=== PATIENT | female | born 1970 | race Caucasian/White ===

== ENCOUNTER → 2023-12-25 | Emergency (ER) | payer OTHER ==
[~2023-12-25] MED LIST: KETOROLAC 30 MG/ML INJ ONE; MORPHINE 4 MG/ML SYR ONE; NA CHLORIDE 0.9% 1,000 ML ONE; ONDANSETRON 4 MG/2 ML VIAL ONE
[2023-12-25 18:02] LABS: Absolute Lymphocytes (CBC) 2.5 K/uL (0.7-4.9); Lymphocytes % 32.8 % (15.3-44.8); MCV 100.5 fL (80-100); MPV 8.4 fL (7.6-11.3); Platelets 313 thou/uL (152-406); RBC Red Blood Cell Count 4.38 M/uL (3.86-4.86)
[2023-12-25 18:21] LABS: Albumin 4.1 g/dL (3.4-5.0); Bilirubin Total 0.7 mg/dL (0.2-1.0); Potassium 3.6 mEq/L (3.5-5.1); Protein, Total 7.7 g/dL (6.4-8.2)
[2023-12-25 19:07] LABS: Specific Gravity 1.017 (1.005-1.030); Urine Bacteria None Seen /HPF (<20); Urine Bilirubin NEGATIVE (Negative); Urine Blood Negative (Negative); Urine Clarity Clear (Clear); Urine Color Light-Yellow (Yellow); Urine Glucose NEGATIVE (Negative); Urine Protein TRACE (Negative); Urine RBC <5 /HPF (None Seen); Urine Urobilinogen Normal (Normal)
--- NOTE | 2023-12-25 19:39 | RAD REPORT ---
EXAM DESCRIPTION: CT - Abdomen Pelvis W Contrast - 12/25/2023 6:56 pm CLINICAL HISTORY: R flank pain COMPARISON: No comparisons TECHNIQUE: Thin cut axial CT imaging of the abdomen and pelvis was performed following intravenous a dministration of 97 mL Isovue 300. Multiplanar reformats were generated and reviewed. All CT scans are performed using dose optimization technique as appropriate and may include automated exposure control or mA/KV adjustment according to patient size. FINDINGS: No suspicious findings in the lung bases. The liver, spleen, adrenal glands, and pancreas show no suspicious findings. Gallbladder and biliary tree are also without suspicious finding. Symmetric renal function is seen with no hydronephrosis or suspicious renal mass. No dilated bowel loops or bowel wall thickening. No free air, free fluid or inflammatory stranding. N o hernia, mass or bulky lymphadenopathy. The urinary bladder is without significant finding. No suspicious bony findings. IMPRESSION: No acute intra-abdominal process.
--- NOTE | 2023-12-25 19:56 | ER ---
Nurse's Notes [facility] Name: Nancy Mcfarland Age: 53 yrs Sex: Female : 1970 Arrival Date: 12/25/2023 Time: 17:09 Bed 15 Private MD: Diagnosis: Flank Pain Presentation: 12/25 17:27 Chief complaint: Patient states: RIGHT SIDE AND RIGHT FLANK PAIN PAIN X 3 WEEKS. STATES db URINE HAS A DIFFERENT SMELL TO IT. COMPLAINS OF N/V. Coronavirus screen: Client denies travel out of the [place] in the last 14 days. At this time, the client does not indicate any symptoms associated with coronavirus-19. Ebola Screen: Patient negative for fever greater than or equal to 101.5 degrees Fahrenheit, and additional compatible Ebola Virus Disease symptoms Patient denies exposure to infectious person. Patient denies travel to an Ebola-affected area in the 21 days before illness onset. No symptoms or risks identified at this time. Initial Sepsis Screen: Does the patient meet any 2 criteria? No. Patient's initial sepsis screen is negative. Does the patient have a suspected source of infection? No. Patient's initial sepsis screen is negative. Risk Assessment: Do you want to hurt yourself or someone else? Patient reports no desire to harm self or others. Onset of symptoms was December 25, 2023. 17:27 Method Of Arrival: Ambulatory db 17:27 Acuity: MARCO 3 db Triage Assessment: 17:30 General: Appears in no apparent distress. uncomfortable, Behavior is calm, cooperative. db Pain: Complains of pain in back and abdomen. Neuro: Level of Consciousness is awake, alert, obeys commands, Oriented to person, place, time, situation. GI: Abdomen is flat, Reports nausea, vomiting. Historical: - Allergies: 17:30 Hydrocodone-Acetaminophen; db - PMHx: 17:30 Hypothyroidism; db - PSHx: 17:30 PARTIAL HYSTERECTOMY; db - Immunization history:: Adult Immunizations unknown. - Social history:: Smoking status: Patient reports the use of cigarette tobacco products, denies chronic smoking, but will smoke occasionally. Screenin:56 [facility] ED Fall Risk Assessment (Adult) History of falling in the last 3 months, kc6 including since admission No falls in past 3 months (0 pts) Confusion or Disorientation No (0 pts) Intoxicated or Sedated No (0 pts) Impaired Gait No (0 pts) Mobility Assist Device Used No (0 pt) Altered Elimination No (0 pt) Score/Fall Risk Level 0 - 2 = Low Risk. Abuse screen: Denies threats or abuse. Denies injuries from another. Nutritional screening: No deficits noted. Tuberculosis screening: No symptoms or risk factors identified. Assessment: 17:56 General: Appears in no apparent distress. uncomfortable, well groomed, well developed, kc6 Behavior is calm, cooperative, appropriate for age. Pain: Complains of pain in right upper quadrant and right lower quadrant and back. Neuro: Level of Consciousness is awake, alert, obeys commands, Oriented to person, place, time, situation, Appropriate for age. Cardiovascular: Capillary refill < 3 seconds. Respiratory: Airway is patent Trachea midline Respiratory effort is even, unlabored, Respiratory pattern is regular, symmetrical. GI: Pt is actively vomiting bile, Bowel sounds present X 4 quads. Abd is soft X 4 quads Abdomen is tender to palpation in right upper quadrant and right lower quadrant Reports lower abdominal pain, upper abdominal pain, nausea, vomiting, Patient currently denies diarrhea. : No signs and/or symptoms were reported regarding the genitourinary system. EENT: No signs and/or symptoms were reported regarding the EENT system. Derm: No signs and/or symptoms reported regarding the dermatologic system. Skin is intact, is healthy with good turgor, Skin is pink, warm \T\ dry. Musculoskeletal: No signs and/or symptoms reported regarding the musculoskeletal system. Circulation, motion, and sensation intact. Capillary refill < 3 seconds, Range of motion: intact in all extremities. 19:07 Reassessment: Patient appears in no apparent distress at this time. No changes from tm6 previously documented assessment. Patient and/or family updated on plan of care and expected duration. Pain level reassessed. Patient is alert, oriented x 3, equal unlabored respirations, skin warm/dry/pink. 20:15 Reassessment: Patient appears in no apparent distress at this time. No changes from tm6 previously documented assessment. Vital Signs: 17:27 Pulse 71; Resp 18; Temp 98.5; Pulse Ox 100% ; Weight 58.97 kg; Height 5 ft. 5 in. ; db 17:57 BP 140 / 92; kc6 19:04 BP 141 / 74; Pulse 73; Resp 19; Pulse Ox 100% ; Pain 7/10; tm6 20:15 BP 117 / 65; Pulse 74; Resp 19; Temp 98.3(O); Pulse Ox 100% on R/A; Pain 3/10; tm6 17:27 Body Mass Index 21.63 (58.97 kg, 165.1 cm) db 19:04 Pain Scale: Adult tm6 20:15 Pain Scale: Adult tm6 ED Course: 17:15 Patient arrived in ED. ae5 17:19 Jai Rapp MD is Attending Physician. ec2 17:27 Arm band placed on right wrist. db 17:29 Triage completed. db 17:34 Leela Murillo, SANA is Primary Nurse. [facility] 17:56 Radiology exam delayed due to IV insertion attempt and/or patient not having nj appropriate IV at this time. 17:56 Radiology exam delayed due to lab results not completed at this time. (BUN/Creatinine). nj 17:56 Patient has correct armband on for positive identification. Bed in low position. Call kc6 light in reach. Side rails up X 1. Adult w/ patient. Client placed on continuous cardiac and pulse oximetry monitoring. NIBP monitoring applied. 17:56 Inserted saline lock: 20 gauge in left wrist, using aseptic technique. Blood collected. kc6 Patient maintains SpO2 saturation greater than 95% on room air. 18:21 Radiology exam delayed due to lab results not completed at this time. (BUN/Creatinine). nj 18:57 CT Abd/Pelvis - IV Contrast Only In Process Unspecified. EDMS 19:00 Report given to SANA Raphael. [facility] 19:08 Door closed. Noise minimized. Warm blanket given. tm6 20:15 No provider procedures requiring assistance completed. IV discontinued, intact, tm6 bleeding controlled, No redness/swelling at site. Pressure dressing applied. 20:16 Provided Education on: at home pain management. tm6 Administered Medications: 17:56 Drug: NS 0.9% IV 1000 ml IV at 1 bolus Per protocol; 1000 mL bolus Route: IV; Rate: 1 kc6 bolus; Site: left wrist; 17:56 Drug: TORadol - Ketorolac IVP 15 mg IVP once Route: IVP; Site: left wrist; kc 18:30 Follow up: Response: No adverse reaction; Pain is decreased kc6 17:56 Drug: Ondansetron IVP 4 mg IVP once; over 2 minutes Route: IVP; Site: left wrist; kc6 18:30 Follow up: Response: No adverse reaction; Nausea is decreased; Vomiting decreased kc6 17:56 Drug: morphine IVP or IV 4 mg IVP once over 4 mins Route: IVP; Infused Over: 4 mins; kc6 Site: left wrist; 18:30 Follow up: Response: No adverse reaction; Pain is decreased; RASS: Alert and Calm (0) kc6 19:27 Drug: morphine IVP or IV 4 mg IVP once over 4 mins Route: IVP; Infused Over: 4 mins; tm6 Site: left forearm; Medication: 20:16 VIS not applicable for this client. tm6 Outcome: 19:55 Discharge ordered by . ec2 20:16 Discharged to home ambulatory, with family, tm6 20:16 Condition: stable 20:16 Discharge instructions given to patient, family, Instructed on discharge instructions, follow up and referral plans. Demonstrated understanding of instructions, follow-up care, 20:16 Patient left the ED. tm6 Signatures: Dispatcher [employer] EDMS Emory Hutson Kaitlyn, RN RN kc6 Jaymie Wong RN RN Jai Cullen MD MD ec2 Donavon Ford RN RN tm6 Rosy Foster ae5 Corrections: (The following items were deleted from the chart) 17:31 17:27 Pulse 71bpm; Resp 18bpm; Pulse Ox 100%; Temp 98.5F; db db
--- NOTE | 2023-12-25 19:56 | EDPHYS ---
Physician Documentation [facility] Name: Nancy Mcfarland Age: 53 yrs Sex: Female : 1970 Arrival Date: 12/25/2023 Time: 17:09 Bed 15 Private MD: ED Physician Jai Rapp HPI: 12/25 17:32 This 53 yrs old Female presents to ER via Ambulatory with complaints of Flank ec2 Pain, Vomiting, Urinary Problem. 17:32 Patient arrives today for evaluation of right flank pain with associated nausea and ec2 vomiting. Patient reports that she been experiencing 3 weeks of symptoms, states that they were intermittent however now more constant. Patient reports some foul-smelling urine. Patient reports no fevers or chills, does endorse nausea and vomiting. Reports previous history of partial hysterectomy.. Historical: - Allergies: 17:30 Hydrocodone-Acetaminophen; db - PMHx: 17:30 Hypothyroidism; db - PSHx: 17:30 PARTIAL HYSTERECTOMY; db - Immunization history:: Adult Immunizations unknown. - Social history:: Smoking status: Patient reports the use of cigarette tobacco products, denies chronic smoking, but will smoke occasionally. ROS: 17:32 Constitutional: as per hpi ec2 Exam: 17:32 Constitutional: GEN: NAD Head: atraumatic Eyes: EOMI Ears: External ears are ec2 normal. CV: regular rate LUNGS: no respiratory distress ABD: non-distended, soft, nontender, not guarding, not rigid. Right flank with minimal CVA TTP SKIN: no evidence of rashes MSK: no evidence of trauma NEURO: moves all extremities equally Vital Signs: 17:27 Pulse 71; Resp 18; Temp 98.5; Pulse Ox 100% ; Weight 58.97 kg; Height 5 ft. 5 in. ; db 17:57 BP 140 / 92; kc6 19:04 BP 141 / 74; Pulse 73; Resp 19; Pulse Ox 100% ; Pain 7/10; tm6 20:15 BP 117 / 65; Pulse 74; Resp 19; Temp 98.3(O); Pulse Ox 100% on R/A; Pain 3/10; tm6 17:27 Body Mass Index 21.63 (58.97 kg, 165.1 cm) db 19:04 Pain Scale: Adult tm6 20:15 Pain Scale: Adult tm6 MDM: 17:30 Patient medically screened. ec2 17:32 Data reviewed: vital signs. ED course: Patient arrives today for evaluation of right ec2 flank pain. Examination remarkable for well-appearing nontoxic individual is otherwise in no acute distress with reassuring examination. Will obtain lab work, CT imaging and treat the patient's pain. Currently evaluating for process such as urolithiasis, pyelonephritis, UTI.. 18:25 ED course: Metabolic profile reassuring, lipase within normal ranges. . ec2 19:46 ED course: CT abdomen pelvis shows no acute intra-abdominal process. . ec2 19:54 ED course: On reassessment patient with improving symptoms. CT imaging shows no acute ec2 intra-abdominal process. Will discharge home. Return precautions given.. 12/25 17:32 Order name: CBC with Diff; Complete Time: 18:13 ec2 12/25 17:32 Order name: CMP; Complete Time: 18:25 ec2 12/25 17:32 Order name: Lipase; Complete Time: 18:25 ec2 12/25 17:32 Order name: Urinalysis w/ reflexes; Complete Time: 19:17 ec2 12/25 17:32 Order name: CT Abd/Pelvis - IV Contrast Only; Complete Time: 19:46 ec2 12/25 17:32 Order name: IV Saline Lock; Complete Time: 17:55 ec2 12/25 17:32 Order name: Labs collected and sent; Complete Time: 17:55 ec2 Administered Medications: 17:56 Drug: NS 0.9% IV 1000 ml IV at 1 bolus Per protocol; 1000 mL bolus Route: IV; Rate: 1 kc6 bolus; Site: left wrist; 17:56 Drug: TORadol - Ketorolac IVP 15 mg IVP once Route: IVP; Site: left wrist; kc6 18:30 Follow up: Response: No adverse reaction; Pain is decreased kc6 17:56 Drug: Ondansetron IVP 4 mg IVP once; over 2 minutes Route: IVP; Site: left wrist; kc6 18:30 Follow up: Response: No adverse reaction; Nausea is decreased; Vomiting decreased kc6 17:56 Drug: morphine IVP or IV 4 mg IVP once over 4 mins Route: IVP; Infused Over: 4 mins; kc6 Site: left wrist; 18:30 Follow up: Response: No adverse reaction; Pain is decreased; RASS: Alert and Calm (0) kc6 19:27 Drug: morphine IVP or IV 4 mg IVP once over 4 mins Route: IVP; Infused Over: 4 mins; tm6 Site: left forearm; Disposition Summary: 12/25/23 19:55 Discharge Ordered Notes: Location: Home ec2 Condition: Stable ec2 Diagnosis - Flank Pain ec2 Followup: ec2 - With: Private Physician - When: - Reason: Re-evaluation by your physician Discharge Instructions: - Discharge Summary Sheet ec2 - Flank Pain, Adult, [id number] ec2 Forms: - Medication Reconciliation Form ec2 - Thank You Letter ec2 - Antibiotic Education ec2 - Prescription Opioid Use ec2 - Patient Portal Instructions ec2 - Leadership Thank You Letter ec2 Signatures: Dispatcher [employer] Leela Coronado RN RN kc6 Jaymie Wong RN RN db Jai Rapp MD MD ec2 Donavon Ford RN RN tm6 Corrections: (The following items were deleted from the chart) 17:34 17:34 Patient medically screened. ec2 ec2
[2023-12-25 20:24] VITALS: O2SAT 100
[2023-12-25 20:41] VITALS: BP 117/65; TEMP 98.3
== END ==
LOC: ER 17:09
DX: R10.9 Unspecified abdominal pain (principal); R11.2 Nausea with vomiting, unspecified; F17.210 Nicotine dependence, cigarettes, uncomplicated; Z88.5 Allergy status to narcotic agent
CPT/HCPCS: 36415; 74177; 80053; 81001; 83690; 85025; J2405; J7030; Q9967